=== PATIENT | female | born 1950 | race Caucasian/White ===

== ENCOUNTER 2019-04-27 18:34 | Inpatient (IN) ==
[2019-04-27] MEDS ORDERED: Naloxone 0.4 MG/ML INJ IVP PRN (23:47)
[2019-04-28] MEDS ORDERED: Acetaminophen 325 MG TABLET PO PRN (00:33)
[2019-04-28] MEDS ORDERED: Ondansetron 4 MG/2 ML VIAL IVP PRN (00:35)
[2019-04-28] MEDS ORDERED: *HR* HYDROcodone/Acet 5/325 mg TABLET PO PRN (00:35)
[2019-04-28] MEDS: *HR* Heparin 5,000 UNIT/ML VIAL SQ SCH ×4 (01:05→20:33)
[2019-04-28] MEDS: 0.9 % Sodium Chloride 1,000 ML IVC SCH ×2 (01:05→09:02)
[2019-04-28 01:46] LABS: Basophils % 0.3 %; Hemoglobin 10.2 g/dL (11.5-15.4); Immature Granulocytes % 0.9 % (0-4); Lymphocytes # 1.5 K/mcL (0.6-4.6); Lymphocytes % 16.6 %; Mean Corpuscular HGB Conc 30.9 g/dL (31.6-35.5); Mean Corpuscular Hemoglobin 33.2 pg (28.0-33.3); Mean Corpuscular Volume 107.5 fL (83.0-100.0); Mean Platelet Volume 11.4 fL (9.4-12.4); Monocytes # 1.3 K/mcL (0.0-1.3); Monocytes % 14.1 %; Neutrophils # 6.2 K/mcL (1.6-8.9); Platelet Count 118 K/mcL (140-400); Red Blood Count 3.07 M/mcL (3.82-4.97); Red Cell Distribution Width 15.7 % (11.5-14.5); Segmented Neutrophils % 68.1 %; White Blood Count 9.2 K/mcL (4.3-11.1)
[2019-04-28 01:55] LABS: INR 1.3; Prothrombin Time 15.3 Seconds (9.4-12.1)
[2019-04-28 02:02] LABS: Alanine Aminotransferase 18 Units/L (7-52); Albumin 2.9 g/dL (3.5-5.7); Albumin/Globulin Ratio 0.8 (1.1-2.2); Alkaline Phosphatase 71 Units/L (34-104); Aspartate Amino Transferase 38 Units/L (13-39); BUN/Creatinine Ratio 17 (6-26); Bilirubin,Total 0.7 mg/dL (0.3-1.0); Blood Urea Nitrogen 18 mg/dL (8-23); Calcium 7.9 mg/dL (8.6-10.3); Carbon Dioxide 22 mEq/L (23-29); Chloride 112 mEq/L (98-107); Chol/HDL Ratio 3.7 (0-4.9); Cholesterol 92 mg/dL (< 200); Creatine Kinase 595 Units/L (30-223); Globulin 3.6 g/dL (2.4-3.5); Glucose 158 mg/dL (70-105); HDL Cholesterol 25 mg/dL (40-59); LDL Cholesterol,Calculated 45 mg/dL (0-99); Magnesium 1.9 mg/dL (1.6-2.6); Osmolality,Calculated 297 (280-300); Phosphorous 3.2 mg/dL (2.7-4.5); Potassium 3.5 mEq/L (3.5-5.1); Sodium 141 mEq/L (136-145); Total Protein 6.5 g/dL (6.4-8.9); Triglycerides 111 mg/dL (< 150); eGFR For African Americans > 60 (> 60); eGFR For Non-African Americans 53 (> 60)
[2019-04-28] MEDS ORDERED: Azithromycin 500 MG in 0.9 % Sodium Chloride 250 ML IVPB SCH (08:00)
[2019-04-28] MEDS ORDERED: Azithromycin 250 MG TABLET PO SCH (09:00)
[2019-04-28] MEDS: Cyanocobalamin (B-12) 1,000 MCG TABLET PO SCH (09:02)
[2019-04-28] MEDS: cefTRIAXone 2,000 MG in Water for inj. (sterile) 20 ML IVP SCH (09:02)
[2019-04-28] MEDS: Ascorbic Acid 500 MG TABLET PO SCH (09:03)
[2019-04-28] MEDS: Aspirin Enteric Coated 81 MG Tablet PO SCH (09:03)
[2019-04-28] MEDS: Divalproex (12 HR) 500 MG TABLET PO SCH ×2 (09:03→20:31)
[2019-04-28] MEDS: OLANZapine 10 MG TAB.RAPDIS PO SCH (20:31)
[2019-04-29 02:09] LABS: Basophils % 0.5 %; Hemoglobin 9.6 g/dL (11.5-15.4); Red Cell Distribution Width 15.9 % (11.5-14.5)
[2019-04-29 02:11] LABS: Eosinophils # 0.1 K/mcL (0.0-0.6); Eosinophils % 0.8 %; Hematocrit 31.6 % (35.3-44.9); Immature Granulocytes % 1.1 % (0-4); Immature Platelets 6.1 % (1.1-6.1); Lymphocytes # 2.8 K/mcL (0.6-4.6); Lymphocytes % 32.1 %; Mean Corpuscular HGB Conc 30.4 g/dL (31.6-35.5); Mean Corpuscular Hemoglobin 32.4 pg (28.0-33.3); Mean Corpuscular Volume 106.8 fL (83.0-100.0); Mean Platelet Volume 11.5 fL (9.4-12.4); Monocytes # 1.3 K/mcL (0.0-1.3); Monocytes % 15.1 %; Neutrophils # 4.4 K/mcL (1.6-8.9); Red Blood Count 2.96 M/mcL (3.82-4.97); Segmented Neutrophils % 50.4 %; White Blood Count 8.7 K/mcL (4.3-11.1)
[2019-04-29 02:28] LABS: Platelet Count 91 K/mcL (140-400)
[2019-04-29] MEDS: *HR* Heparin 5,000 UNIT/ML VIAL SQ SCH (03:16)
[2019-04-29] MEDS: Ascorbic Acid 500 MG TABLET PO SCH (09:44)
[2019-04-29] MEDS: Divalproex (12 HR) 500 MG TABLET PO SCH ×2 (09:45→21:27)
[2019-04-29] MEDS: Cyanocobalamin (B-12) 1,000 MCG TABLET PO SCH (09:45)
[2019-04-29] MEDS: cefTRIAXone 2,000 MG in Water for inj. (sterile) 20 ML IVP SCH (09:45)
[2019-04-29] MEDS: Aspirin Enteric Coated 81 MG Tablet PO SCH (09:45)
[2019-04-29 13:08] LABS: % Iron Saturation 11 % (15-50); Iron 23 mcg/dL (50-170); Transferrin 152 mg/dL (203-362)
[2019-04-29 13:19] LABS: Ferritin 146 ng/mL (10-120)
[2019-04-29 13:24] LABS: Folate 7.5 ng/mL (3.0-16.0)
[2019-04-29] MEDS: OLANZapine 10 MG TAB.RAPDIS PO SCH (21:27)
[2019-04-30] MEDS ORDERED: DilTIAZem 50 MG in 0.9 % Sodium Chloride 40 ML IVC SCH (01:15)
[2019-04-30 06:38] LABS: Mean Corpuscular Volume 105.3 fL (83.0-100.0); Mean Platelet Volume 11.7 fL (9.4-12.4); Segmented Neutrophils % 51.7 %
[2019-04-30 06:40] LABS: Basophils # 0.1 K/mcL (0.0-0.2); Basophils % 0.9 %; Eosinophils # 0.2 K/mcL (0.0-0.6); Hematocrit 31.8 % (35.3-44.9); Hemoglobin 9.8 g/dL (11.5-15.4); Immature Granulocytes % 2.1 % (0-4); Immature Platelets 9.1 % (1.1-6.1); Lymphocytes # 1.9 K/mcL (0.6-4.6); Lymphocytes % 32.6 %; Mean Corpuscular HGB Conc 30.8 g/dL (31.6-35.5); Mean Corpuscular Hemoglobin 32.5 pg (28.0-33.3); Monocytes # 0.6 K/mcL (0.0-1.3); Monocytes % 9.7 %; Platelet Count 101 K/mcL (140-400); Red Blood Count 3.02 M/mcL (3.82-4.97); Red Cell Distribution Width 15.3 % (11.5-14.5); White Blood Count 5.8 K/mcL (4.3-11.1)
[2019-04-30] MEDS: cefTRIAXone 2,000 MG in Water for inj. (sterile) 20 ML IVP SCH (09:50)
[2019-04-30] MEDS: Aspirin Enteric Coated 81 MG Tablet PO SCH (09:51)
[2019-04-30] MEDS: Cyanocobalamin (B-12) 1,000 MCG TABLET PO SCH (09:51)
[2019-04-30] MEDS: Divalproex (12 HR) 500 MG TABLET PO SCH ×2 (09:51→20:56)
[2019-04-30] MEDS: Ascorbic Acid 500 MG TABLET PO SCH (09:51)
[2019-04-30] MEDS: OLANZapine 10 MG TAB.RAPDIS PO SCH (20:56)
[2019-05-01 06:24] LABS: Basophils % 0.6 %; Eosinophils # 0.2 K/mcL (0.0-0.6); Eosinophils % 3.8 %; Hematocrit 30.6 % (35.3-44.9); Hemoglobin 9.4 g/dL (11.5-15.4); Immature Granulocytes % 1.7 % (0-4); Lymphocytes # 2.5 K/mcL (0.6-4.6); Lymphocytes % 46.1 %; Mean Corpuscular HGB Conc 30.7 g/dL (31.6-35.5); Mean Corpuscular Hemoglobin 32.5 pg (28.0-33.3); Mean Corpuscular Volume 105.9 fL (83.0-100.0); Mean Platelet Volume 12.2 fL (9.4-12.4); Monocytes # 0.6 K/mcL (0.0-1.3); Monocytes % 11.7 %; Neutrophils # 1.9 K/mcL (1.6-8.9); Platelet Count 108 K/mcL (140-400); Red Blood Count 2.89 M/mcL (3.82-4.97); Red Cell Distribution Width 15.3 % (11.5-14.5); Segmented Neutrophils % 36.1 %; White Blood Count 5.3 K/mcL (4.3-11.1)
[2019-05-01] MEDS: cefTRIAXone 2,000 MG in Water for inj. (sterile) 20 ML IVP SCH (07:50)
[2019-05-01] MEDS: Cyanocobalamin (B-12) 1,000 MCG TABLET PO SCH (07:51)
[2019-05-01] MEDS: Aspirin Enteric Coated 81 MG Tablet PO SCH (07:51)
[2019-05-01] MEDS: Ascorbic Acid 500 MG TABLET PO SCH (07:51)
[2019-05-01] MEDS: Divalproex (12 HR) 500 MG TABLET PO SCH ×2 (07:51→20:11)
[2019-05-01] MEDS: OLANZapine 10 MG TAB.RAPDIS PO SCH (20:11)
[2019-05-02] MEDS: cefTRIAXone 2,000 MG in Water for inj. (sterile) 20 ML IVP SCH (09:16)
[2019-05-02] MEDS: Cyanocobalamin (B-12) 1,000 MCG TABLET PO SCH (09:16)
[2019-05-02] MEDS: Divalproex (12 HR) 500 MG TABLET PO SCH (09:17)
[2019-05-02] MEDS: Aspirin Enteric Coated 81 MG Tablet PO SCH (09:17)
[2019-05-02] MEDS: Ascorbic Acid 500 MG TABLET PO SCH (09:17)
[2019-05-02 12:16] VITALS: BP 158/82
== END 2019-05-02 13:28 | DRG 641 ==
LOC: 2ANU → SUATTDRO 21:09
PROVIDERS: ADMIT Internal Medicine; ATTEND Internal Medicine